=== PATIENT | male | born 1960 | race Caucasian/White ===

== ENCOUNTER 2021-03-01 09:53 | Outpatient (CLI) | payer OTHER, SELFPAY | END 2021-03-01 09:54 | disposition home or self-care (01) | LOC: ANHAUDIO 09:57 | PROVIDERS: PCP Physician Assistant; Visit Provider Physician Assistant | DX: H91.93 Unspecified hearing loss, bilateral (principal) | CPT/HCPCS: 92557; 92567 ==

== ENCOUNTER 2021-03-28 14:19 | Outpatient (RCR) | payer OTHER, SELFPAY | END 2021-03-28 23:59 | disposition home or self-care (01) | LOC: ANHAUDIO 14:19 | PROVIDERS: PCP Physician Assistant; Visit Provider Physician Assistant | DX: Z46.1 Encounter for fitting and adjustment of hearing aid (principal) | CPT/HCPCS: V5160; V5261 ==